=== PATIENT | female | born 1955 | race Two or more races ===

== ENCOUNTER 2022-01-27 19:07 | Emergency (ER) | payer MEDICAID, OTHER ==
[~2022-01-27] VITALS: Ht 165.1 cm; Wt 77.1 kg
--- NOTE | 2022-01-27 20:14 | NUR ---
BIBDAUGHTER C/O BILATERAL FEET SWELLING, HEADAHCHE, CP, AND DIZZINESS DUE TO PT BEING HYPERTENSIVE. PT TOOK HER BP MEDS TODAY. PLACED IN BED 11 ON COUNSELING PSYCHOLOGIST AND PULSE OX.
--- NOTE | 2022-01-27 20:22 | NUR ---
BLOOD COLLECTED AND SENT TO LAB
[2022-01-27 20:47] LABS: BASOPHILS # (AUTO) 0.1 K/uL (0.0-0.2); BASOPHILS % (AUTO) 0.7 % (0.0-2.0); EOSINOPHILS % (AUTO) 1.9 % (0.0-6.0); HEMATOCRIT 39 % (33-45); HEMOGLOBIN 12.6 g/dL (11.5-14.8); LYMPHOCYTES # (AUTO) 2.3 K/uL (0.8-4.8); LYMPHOCYTES % (AUTO) 30.1 % (20.0-44.0); MEAN CORPUSCULAR HGB CONC 33 g/dl (31.0-36.0); MEAN CORPUSCULAR VOLUME 87 fL (82-100); MONOCYTES # (AUTO) 0.5 K/uL (0.1-1.30); MONOCYTES % (AUTO) 6.5 % (2.0-12.0); NEUTROPHILS # (AUTO) 4.7 K/uL (1.8-8.9); NEUTROPHILS % (AUTO) 60.8 % (43.0-81.0); PLATELET COUNT (AUTO) 280 K/uL (150-450); RED BLOOD CELL COUNT(AUTO) 4.42 MIL/uL (4.0-5.2); WHITE BLOOD COUNT (AUTO) 7.8 K/uL (4.3-11.0)
[2022-01-27 21:03] LABS: CALCIUM, SERUM 9.1 mg/dL (8.5-10.1); CARBON DIOXIDE 30 mmol/L (21-32); CHLORIDE 103 mmol/L (98-107); CREATININE 0.8 mg/dL (0.6-1.3); GLUCOSE 160 mg/dL (74-106); POTASSIUM 3.8 mmol/L (3.5-5.1); SODIUM SERUM 141 mmol/L (136-145); UREA NITROGEN, BLOOD 16 mg/dL (7-18)
[2022-01-27 21:09] LABS: ALANINE AMINOTRANSFERASE 42 U/L (12-78); ALKALINE PHOSPHATASE 68 U/L (46-116); ASPARTATE AMINOTRANSFERASE 15 U/L (15-37); BILIRUBIN,DIRECT 0.1 mg/dL (0.0-0.2); BILIRUBIN,TOTAL 0.3 mg/dL (0.2-1.0); TOTAL PROTEIN, SERUM 7.5 g/dL (6.4-8.2)
--- NOTE | 2022-01-27 21:55 | NUR ---
SAURABH DONE AND SENT TO LAB
[2022-01-27] MEDS ORDERED: ASPIRIN 325 MG TABLET ONE (21:57)
[2022-01-27] MEDS ORDERED: ASPIRIN 325 MG TABLET PO ONE (22:00)
[2022-01-27] MEDS ORDERED: CYCLOBENZAPRINE 10 MG TABLET PO ONE (22:30)
[2022-01-27] MEDS ORDERED: CYCLOBENZAPRINE 10 MG TABLET ONE (22:39)
--- NOTE | 2022-01-27 23:35 | NUR ---
Patient does not wish to proceed with medical care recommended by Dr. mena. Patient given information related to possible complications, up to and including , which could occur as a result of leaving the hospital at this time. Patient verbalizes understanding of risks involved due to leaving against medical advice. Patient has signed AMA form.
[2022-01-27 23:36] VITALS: BP 145/70
== END 2022-01-27 23:44 | disposition left against medical advice (07) ==
LOC: ER 19:09
DX: R07.9 Chest pain, unspecified (principal); M54.31 Sciatica, right side; Z20.822 Contact with and (suspected) exposure to COVID-19; Z53.29 Procedure and treatment not carried out because of patient's decision for other reasons; I10 Essential (primary) hypertension; E11.9 Type 2 diabetes mellitus without complications
CPT/HCPCS: 99285; 70450; 71045; 87426; 93005; 85025; 80048; 80076; 36415; 84484 ×2; 85730; C9803

== ENCOUNTER 2022-06-07 15:41 | Emergency (ER) | payer MEDICAID ==
[~2022-06-07] VITALS: Ht 160 cm; Wt 99.3 kg
[2022-06-07 15:55] VITALS: BP 149/74
--- NOTE | 2022-06-07 17:29 | NUR ---
CALLED CONTACT NUMBER. ETA IS 5 MIN.
--- NOTE | 2022-06-07 17:48 | NUR ---
TO ER 16,NO APPARENT CHANGE IN CONDITION
[2022-06-07] MEDS ORDERED: SULF1TAB48 PO (17:59)
--- NOTE | 2022-06-07 18:19 | NUR ---
Patient discharged to home in stable condition. Written and verbal after care instructions given. Patient verbalizes understanding of instruction.
== END 2022-06-07 18:20 | disposition home or self-care (01) ==
LOC: ER 15:49
DX: L03.011 Cellulitis of right finger (principal); I10 Essential (primary) hypertension; E11.9 Type 2 diabetes mellitus without complications; E78.00 Pure hypercholesterolemia, unspecified

== ENCOUNTER 2024-11-08 23:32 | Emergency (ER) | payer MEDICAID ==
[~2024-11-08] VITALS: Ht 154.9 cm; Wt 90.7 kg
[~2024-11-08 23:32] MED LIST: SULF1TAB48 PO
[2024-11-09 00:28] LABS: APPEARANCE,URINE CLEAR (CLEAR); BILIRUBIN,URINE NEGATIVE (NEGATIVE); BLOOD, URINE TRACE-INTA Ery/uL (NEGATIVE); COLOR,URINE YELLOW (YELLOW); KETONES,URINE NEGATIVE (NEGATIVE); LEUKOCYTE ESTERASE ,URINE 1+ (NEGATIVE); NITRITE, URINE NEGATIVE (NEGATIVE); PROTEIN,URINE NEGATIVE (NEGATIVE); UGLUCOSE 2+ mg/dL (NEGATIVE); UROBILINOGEN,URINE 0.2 EU/dL (0.2)
[2024-11-09 00:49] LABS: ADD URINE CULTURE YES; BACTERIA,URINE Few /HPF (None Seen); SQUAMOUS EPITHELIAL CELL,UR Moderate /HPF (None Seen)
[2024-11-09] MEDS ORDERED: IBUPROFEN 400 MG TABLET ONE (01:09)
[2024-11-09] MEDS: IBUPROFEN 400 MG TABLET PO ONE (01:11)
[2024-11-09] MEDS ORDERED: PHEN-705 PO (01:35)
[2024-11-09] MEDS ORDERED: CEPH500C2 PO (01:35)
[2024-11-09 01:45] VITALS: BP 120/65; TEMP 98; O2SAT 99
[2024-11-09] MEDS ORDERED: CEPHALEXIN MONOHYDRATE 500 MG CAPSULE PO ONE (02:00)
[2024-11-09] MEDS ORDERED: PHENAZOPYRIDINE HCL 200 MG TABLET PO ONE (02:00)
== END 2024-11-09 01:46 | disposition home or self-care (01) ==
LOC: ER 23:51
DX: N39.0 Urinary tract infection, site not specified (principal); I10 Essential (primary) hypertension; E11.9 Type 2 diabetes mellitus without complications; E78.00 Pure hypercholesterolemia, unspecified; Z95.5 Presence of coronary angioplasty implant and graft; Z79.899 Other long term (current) drug therapy
CPT/HCPCS: 81001; 87086-TC